=== PATIENT | female | born 1995 | race Caucasian/White ===

== ENCOUNTER 2024-12-10 09:52 | Emergency (ER) | payer BC, SELFPAY ==
--- NOTE | 2024-12-10 09:53 | ED.URI ---
HPI - URI/Sore Throat General Chief Complaint: Upper Respiratory Infection Stated Complaint: sinus infection Time Seen by Provider: 12/10/24 09:53 Source: patient Mode of arrival: ambulatory Limitations: no limitations History of Present Illness HPI Narrative: Janay is a 29-year-old female patient presenting to the clinic today with complaints of a possible sinus infection. She reports she has a lot of nasal congestion, sinus pressure, postnasal drip, and sore throat. States symptoms started on of last week. Had a [facility] appointment on Tuesday and was given prescription for doxycycline. She has started taken the doxycycline but states that she is not feeling any better. Denies any known fevers, chills, body aches. Denies any chest pain or shortness breath. No sick contacts. MD elicited complaint: sore throat and nasal congestion Related Data Allergies Allergy/AdvReac Type Severity Reaction Status Date / Time No Known Allergies Allergy Verified 12/10/24 09:56 Review of Systems Review of Systems: Pertinent positives per HPI. Patient denies any fever, chills, rash, visual changes, dizziness, shortness of breath, chest pain, palpitations, nausea, vomiting, diarrhea, constipation, abdominal pain, or any urinary issues. PMFSH Comments At the time of my signature, I reviewed and agree with the nursing past medical, surgical, social, and family history. There is no relevant family history pertinent to the patient complaint. Exam Narrative: General: Well-developed, well nourished, in no apparent distress Head: Normocephalic, atraumatic Eyes: Pupils equally round and reactive to light bilaterally, EOM intact, sclera and conjunctive clear, no discharge, lids normal Ears: TMs intact and congested ear canals clear, no drainage, grossly hearing normal. Nose: Nares patent, clear nasal discharge, no inflammation, no sinus tenderness. Mouth: Oral pharynx mildly red without lesions or masses, good dentition, MMM. Postnasal drip Neck: Supple, trachea midline, no enlargement of anterior or posterior cervical nodes, no thyroid masses or goiter palpable. Cardio: Regular rate and rhythm, s1 and s2 normal, no murmur appreciated. Resp: Clear to auscultation bilaterally, no rhonchi, rales, wheezing or rubs Course Course Emergency Course: Portions of this record may have been created with voice recognition software. Level of Care: Express Care Visit Vital Signs Vital signs: Vital Signs Temperature 36.2 C L 12/10/24 10:01 Pulse Rate 110 H 12/10/24 10:01 Respiratory Rate 16 12/10/24 10:01 Blood Pressure 134/80 12/10/24 10:01 Pulse Oximetry 100 12/10/24 10:01 Oxygen Delivery Room Air 12/10/24 10:01 Temperature 36.2 C L 12/10/24 10:01 Pulse Rate 110 H 12/10/24 10:01 Respiratory Rate 16 12/10/24 10:01 Blood Pressure 134/80 12/10/24 10:01 Pulse Oximetry 100 12/10/24 10:01 Oxygen Delivery Room Air 12/10/24 10:01 Vital signs reviewed MDM - URI/Sore Throat MDM Narrative Medical decision making narrative: At the time of visit patient is resting comfortably on the exam table. Patient appears to be nontoxic. Plan: I suspect patient has URI/postnasal drip. Prescription for prednisone was sent to the pharmacy. Supportive measures were discussed with the patient and they voiced understanding discharge instructions and agrees to treatment plan. Return precautions reviewed Differential Diagnosis Differential diagnosis: Likely upper respiratory infection, otitis media, sinusitis, viral infection, bronchitis, influenza, pharyngitis and other (COVID) Discharge Plan Discharge Clinical Impression: PND (post-nasal drip) Upper respiratory infection Qualifiers: URI type: unspecified URI Qualified Code(s): J06.9 - Acute upper respiratory infection, unspecified Patient Disposition: Home, Self-Care Condition: Stable Instructions: Antibiotic Form, Cold Symptoms (ED), Postnasal Drip (DC) Additional Instructions: Take prescription medications only as prescribed-prednisone Continue current medications as prescribed Increase fluids and stay well hydrated Tylenol/motrin for pain/fever Flonase and OTC antihistamines as directed Vicks vapor rub to open sinuses Sinus rinses for congestion Cepacol spray, cough drops, throat lozenges, warm tea with honey/lemon, gargle salt water to soothe throat BRAT diet for diarrhea Clear liquids x 24 hours then advance as tolerated for nausea/vomiting Go to the ED if you develop a worsening in your condition- high fever not controlled by Tylenol or Motrin, dehydration, weakness, lethargy, shortness of breath, or chest pain. Follow up with your PCP in 3-5 days if symptoms persist. Patient Language: Lao Prescriptions: New prednisone 50 mg tablet 50 mg PO DAILY 5 Days Qty: 5 0RF Follow-up/Referrals: Nidia,Ashley Madrigal MD [Primary Care Provider] - Time of Disposition: 10:12 Quality NIHSS Nursing Documentation ED NIHSS nursing documentation: reviewed/agree
[2024-12-10 10:01] VITALS: BP 134/80; PULSE 110; RESP 16; TEMP 36.2; O2SAT 100
--- OUTSIDE RECORDS SUMMARY | 2024-12-13 12:34 | XMS_ITS | Patient Health Record ---
Author Organization [facility] Address [address] [place] [address] Care Team Providers Care Aquatic Habitat Biologist Name Role Phone Ashley Jacob DO Primary Care Provider Miesha Dumas Unavailable [phone] Allergies Allergen (clinical drug ingredient) Drug/Non Drug Allergy documented on EMR Reaction Allergy Type Onset Date Status amoxicillin Amoxicillin other reaction Drug Allergy Active Reason For Referral No Information Medications Medication SIG (Take, Route, Frequency, Duration) Notes Start Date End Date Status Fluticasone Propionate 50 MCG/ACT 2 sprays in each nostril Nasally Twice a day for 30 days Active Soolantra 1 % 1 application Display Specialist ally Once a day Active Cetirizine HCl 10 MG 1 tablet Orally Onc e a day Active Levocetirizine Dihydrochloride 5 MG 1 tablet in the evening Orally Once a day for 30 days Active Aaxkoqaczgb-Ewmojurdb-Ojwfkv ty 1.25-0.025-1 % as directed Externally Active Social History Tobacco Use: Social History Observation Description Date Details (start date - stop date) Former Smoker NA - NA Tobacco Control (Standard) Question Answer Notes Tobacco use: Former smoker Problems Problem Type SNOMED Code ICD Code Onset Dates Problem Status W/U Status Risk Notes Problem Chronic allergic conjunctivitis (53489638) Other chronic allergic conjunctivitis (H10.45) Active confirmed Problem Allergic rhinitis caused by pollen (disorder) (46439094) Allergic rhinitis due to pollen (J30.1) Active confirmed Problem Allergic rhinitis (94601286) Other allergic rhinitis (J30.89) Active confirmed Problem Rosacea (790406536) Rosacea, unspecified (L71.9) Active confirmed Problem Allergic rhinitis caused by animal hair and dander (268673434605073) Allergic rhinitis due to animal (cat) (dog) hair and dander (J30.81) Active confirmed Vital Signs Oximetry 99 % 06/27/2024 Blood pressure diastolic 87 mm Hg 06/27/2024 Height 64 in 06/27/2024 Blood pressure systolic 126 mm Hg 06/27/2024 Weight 189.0 lbs 06/27/2024 BMI 32.44 kg/m2 06/27/2024 Encounters Encounter Location Date Provider Diagnosis [address] [address] 07/25/2024 Miesha Prasad Allergic rhinitis du e to pollen J30.1 ; Dermatitis due to ingested food L27.2 ; Rosacea, unspecified L71.9 ; Allergic rhinitis due to animal (cat) (dog) hair and dander J30.81 ; Other chronic allergic conjunctivitis H10.45 and Snoring R06.[address] [address] 06/27/2024 Miesha Prasad Allergic rhinitis du e to pollen J30.1 ; Dermatitis due to ingested food L27.2 ; Rosacea, unspecified L71.9 ; Allergic rhinitis due to animal (cat) (dog) hair and dander J30.81 ; Other chronic allergic conjunctivitis H10.45 and Snoring R06.83 Assessments Encounter Date Diagnosis (ICD Code) Assessment Notes Treatment Notes Treatment Clinical Notes Section Notes 06/27/2024 Allergic rhinitis due to pollen (ICD-10 - J30.1) Given the history and symptoms, skin testing was performed to common aeroallergens to determine atopic status. Janay Vega clearly suffers from atopic disease based upon our skin testing and clinical history. Accordingly, we have introduced a new, aggressive medication regimen, discussed nasal washes and allergy-specific avoidance measures. We also discussed adjunctive therapies including subcutaneous, specific allergen immunotherapy as relates to the treatment and prevention of atopic disease. She is currently considering the risks, benefits and alternatives to this care. Risks: bleeding, infection, allergic reaction, anaphylaxis; Benefits: reduced need for medications, improved symptoms, disease modification. Alternatives: watch/wait, change medication regimen, improve allergy avoidance measures. Follow-up in 1 month for interval evaluation and management 06/27/2024 Dermatitis due to ingested food (ICD-10 - L27.2) We discussed that skin testing identifies immediate allergic reactions to food including urticaria, angioedema and shortness of breath. Skin testing does not identify food intolerances or food that would flare rosacea. Recommend keeping a food diary. We discussed that spicy food, acidic food and alcohol are common items which can flare rosacea. 07/25/2024 Allergic rhinitis due to pollen (ICD-10 - J30.1) Given the history and symptoms, skin testing was performed to common aeroallergens to determine atopic status. Janay Veag clearly suffers from atopic disease based upon our skin testing and clinical history. Accordingly, we have introduced a new, aggressive medication regimen, discussed nasal washes and allergy-specific avoidance measures. We also discussed adjunctive therapies including subcutaneous, specific allergen immunotherapy as relates to the treatment and prevention of atopic disease. She is currently considering the risks, benefits and alternatives to this care. Risks: bleeding, infection, allergic reaction, anaphylaxis; Benefits: reduced need for medications, improved symptoms, disease modification. Alternatives: watch/wait, change medication regimen, improve allergy avoidance measures. Follow-up in 1 month for interval evaluation and management 07/25/2024 Dermatitis due to ingested food (ICD-10 - L27.2) We discussed that skin testing identifies immediate allergic reactions to food including urticaria, angioedema and shortness of breath. Skin testing does not identify food intolerances or food that would flare rosacea. Recommend keeping a food diary. We discussed that spicy food, acidic food and alcohol are common items which can flare rosacea. 07/25/2024 Rosacea, unspecified (ICD-10 - L71.9) 06/27/2024 Rosacea, unspecified (ICD-10 - L71.9) 06/27/2024 Allergic rhinitis due to animal (cat) (dog) hair and dander (ICD-10 - J30.81) Follow allergen avoidance, meds and consider SCIT as an adjunctive treatment to current regimen 07/25/2024 Allergic rhinitis due to animal (cat) (dog) hair and dander (ICD-10 - J30.81) Follow allergen avoidance, meds and consider SCIT as an adjunctive treatment to current regimen 06/27/2024 Other chronic allergic conjunctivitis (ICD-10 - H10.45) Given ocular signs and symptoms I encouraged allergy avoidance measures and meds as above. If symptoms persist, consider adding additional medications including intraocular antihistamine/mas t cell stabilizer, PRN 07/25/2024 Other chronic allergic conjunctivitis (ICD-10 - H10.45) Given ocular signs and symptoms I encouraged allergy avoidance measures and meds as above. If symptoms persist, consider adding additional medications including intraocular antihistamine/mas t cell stabilizer, PRN 06/27/2024 Snoring (ICD-10 - R06.83) Treat atopic disease and monitor for improvement. Also recommend ENT evaluation given history of breaking her nose. Also recommend sleep study. 07/25/2024 Snoring (ICD-10 - R06.83) Treat atopic disease and monitor for improvement. Also recommend ENT evaluation given history of breaking her nose. Also recommend sleep study. 07/25/2024 Other 06/27/2024 Other Plan Of Treatment No Information Insurance Providers Payer Name Payer Address Payer Phone Subscriber Number Group Number Insured Name Patient Relationship to Insured Coverage Start Date Coverage End Date [facility] [address] [place] [address] [id number] Janay Flynn Kate Self - patient is the insured 4 Medical (General) History Medical History History ICD Code Anxiety Surgical History Surgery Date(Month/Year) mole removal 1997 breast reduction 2019 right acl repair 2009
--- OUTSIDE RECORDS SUMMARY | 2024-12-13 12:34 | XMS_ITS ---
Author Organization [facility] Address [address] [place] [address] Care Team Providers Care Tandem Operator Name Role Phone Ashley Jacob DO Primary Care Provider Miesha Dumas Unavailable [phone] REASON FOR VISIT Chronic upper airway symptoms concerning for uncontrolled atopic disease, Food allergy Medications Medication SIG (Take, Route, Frequency, Duration) Notes Start Date End Date Status Fluticasone Propionate 50 MCG/ACT 2 sprays in each nostril Nasally Twice a day for 30 days Active Soolantra 1 % 1 application Mortar Mixer Operator ally Once a day Active Cetirizine HCl 10 MG 1 tablet Orally Onc e a day Active Levocetirizine Dihydrochloride 5 MG 1 tablet in the evening Orally Once a day for 30 days Active Emboiyfyqzk-Kosaoivdz-Ffsxkl ty 1.25-0.025-1 % as directed Externally Active Encounters Encounter Location Date Provider Diagnosis [facility] [address] [facility] [address] [place] [id number] 07/25/2024 Miesha Prasad Allergic rhinitis du e to pollen J30.1 ; Dermatitis due to ingested food L27.2 ; Rosacea, unspecified L71.9 ; Allergic rhinitis due to animal (cat) (dog) hair and dander J30.81 ; Other chronic allergic conjunctivitis H10.45 and Snoring R06.83 Assessments Encounter Date Diagnosis (ICD Code) Assessment Notes Treatment Notes Treatment Clinical Notes Section Notes 07/25/2024 Allergic rhinitis due to pollen (ICD-10 [...] rosacea. 07/25/2024 Rosacea, unspecified (ICD-10 - L71.9) 07/25/2024 Allergic rhinitis due to animal (cat) (dog) hair and dander (ICD-10 - J30.81) Follow allergen avoidance, meds and consider SCIT as an adjunctive treatment to current regimen 07/25/2024 Other chronic allergic conjunctivitis (ICD-10 - H10.45) Given ocular signs and symptoms I encouraged allergy avoidance measures and meds as above. If symptoms persist, consider adding additional medications including intraocular antihistamine/mas t cell stabilizer, PRN 07/25/2024 Snoring (ICD-10 - R06.83) Treat atopic disease and monitor for improvement. Also recommend ENT evaluation given history of breaking her nose. Also recommend sleep study. 07/25/2024 Other Plan Of Treatment Medication Medication Name Sig Start Date Stop Date Notes Fluticasone Propionate 50 MCG/ACT 2 spra ys in each nostril Nasally Twice a day for 30 days Levocetirizine Dihydrochlori de 5 MG 1 tablet in the evening Orally Once a day for 30 days Treatment Notes Assessment Notes Allergic rhinitis due to pollen Given th e history and symptoms, skin testing was performed [...] 1 month for interval evaluation and management Dermatitis due to ingested food We discu ssed that skin testing identifies immediate allergic reactions to food including urticaria, angioedema and shortness of breath. Skin testing does not identify food intolerances or food that would flare rosacea. Recommend keeping a food diary. We discussed that spicy food, acidic food and alcohol are common items which can flare rosacea. Allergic rhinitis due to ani mal (cat) (dog) hair and dander Follow allergen avoidance, meds and consider SCIT as an adjunctive treatment to current regimen Other chronic allergic conjunctivitis Gi bacilio ocular signs and symptoms I encouraged allergy avoidance measures and meds as above. If symptoms persist, consider adding additional medications including intraocular antihistamine/mast cell stabilizer, PRN Snoring Treat atopic disease and monitor for improvement. Also recommend ENT evaluation given history of breaking her nose. Also recommend sleep study. Next Appt Details Follow Up: 4 Weeks, Reason: Evaluation and Management Progress Notes * Janay JIMENEZeDOB: [birth year] (29 yo F)Acc No.[id number]:07/25/2024 Progress Notes Patient:?Janay JIMENEZ Provider:?Miesha Prasad MD :1995???Age:28 Y???Sex:Female D ate:07/25/2024 [id number] Pcp:Ashley Jacob, DO Subjective: * Chief Complaints: * ???1. Chronic upper airway s ymptoms concerning for uncontrolled atopic disease. 2. Food allergy. * HPI: ???*Introduction:?I had the pleasure of seeing?Janay Jimenez, a 28 year old with history of rosacea, snoring, and rhinitis presenting for evaluation of allergic rhinitis and food allergy. Her is present for today's visit. ?She reports frequent congestion and rhinorrhea Spring and Fall season. She snores at night. No decrease in sense of smell or recurrent sinusitis. She was diagnosed with deviated septum after breaking her nose in childhood. Nasal sprays cause dryness. She takes Zyrtec with some improvement in rhinitis. ?She has a history of rosacea. She is taking Clindamycin gel and following with Dr. Guardado. Spicy and red wine flares her rosacea. Heat, cold, exercise also flare the rosacea. ?Tonsillectomy was performed around age 18. ?She has a cat and a dog at home. Recent water damage in the basement. She is living in a Duplex and bedroom in the basement. No musty smells. ?She reports bloating and sometimes diarrhea after eating meals.? She is concerned about a food allergy. ?She has never undergone allergy skin testing or received allergy immunotherapy.??She denies a history of physician-diagnosed allergic rhinitis, recurrent sinusitis or otitis media, recurrent pneumonia, asthma/RAD, eczema, food allergies, urticaria/angioedema, medication allergies, contact dermatitis, latex allergy, eosinophilic esophagitis or stinging insect hypersensitivity.?*Allergic Rhinoconjunctivitis:?Allergic rhinitis?Do you have or suspect you have allergic rhinitis (itchy eyes, sneezing, congestion or runny nose triggered by allergies)??Yes ?Which areas and what symptoms are involved? Please fill out each section below as needed.?eyes,ears,cough,nose,sore throat,headache,sinuses ?Which of the following trigger your allergic rhinitis symptoms??tree pollen,grass pollen,weed pollen,sinus infections,spring (season),fall (season) ?Do you have any of the following other symptoms associated with your allergic rhinitis??loud snoring,restless sleep ?Eyes?Specific affected area:?both (bilateral) ?Occurence??intermittent ?How frequent??infrequent ?When does this mostly occur??anytime ?Symptoms:?itching,watering ?Ears?Specific affected area:?both (bilateral) ?How often??intermittent ?Symptoms:?plugged ?Nose?Specific area affected:?both (bilateral) ?Occurence??intermittent ?How frequent??infrequent ?When does this mostly occur??anytime ?Symptoms??congestion,sneezing jags,postnasal drainage,sinus infection,awaken very congested in the a.m. ?Effective treatments??oral antihistamines (Zyrtec or Sandra or Claritin) ?Sinuses?Do you have sinus pain??Yes ?Have you lost sense of taste??No ?Where??center of forehead above eyes (frontal),over left cheek (maxillary),over right cheek (maxillary,over nasal bridge between the eyes (ethmoid) ?Have you been treated with antibiotics for sinusitis??Yes ?Which antibiotics??azithromycin ?How often in the past year??3 - 5 times ?What is the longest duration of antibiotics prescribed and completed??6-10 days ?Have any of the following treatments improved your sinus symptoms??oral decongestants (Sudafed),oral antihistamines (Zyrtec or Sandra) ?Have you ever had a CT scan or xray??No ?Have you ever undergone sinus surgery??No ?Sore Throat?Occurence??intermittent ?How frequent??infrequent ?When does this usually occur??anytime ?Effective treatments??throat lozenges ?Cough?Frequency:?infrequent ?Is cough more bothersome during night??No ?Is phlegm produced??Yes ?Sputum color??clear,yellow,green ?Is significant phlegm produced during the night??No ?Effective treatments??OTC cough medicine (Delsym or Robitussin) ?Headache?Specific area(s) affected??center forehead (frontal),over nose between eyes (ethmoid),base of neck,left side of head (orthodox),right side of head (orthodox) ?Occurence??intermittent ?How frequent??infrequent ?What time of day does this mostly occur??anytime ?Accompanying symptoms??phonophobia (bothered by sound) ???*Asthma:?Cough?Do you have a recurrent cough??No ?Wheezing?Do you have recurrent wheezing or a history of wheezing sometime in your life??No ?Did you have symptoms of asthma as a child??No ?Did you have frequent respiratory infections as a child??No ?Were you ever hospitalized in the first 12 months of life for a respiratory infection in childhood??No ?Do you still have wheezing??No ?Physical Performance?How many blocks can you walk? (Enter 99 for unlimited)?30 ?How many flights of stairs can you climb without stopping? (Enter 99 for unlimited)?16 ?Do you have any of the following additional problems??loud snoring,restless sleep ?Effective treatments for cough and or wheezing?OTC cough medicine?Delsym ???*Infections:?Vaccination History?For children, are childhood vaccines up to date:?Yes ?Have you ever had a flu shot??Yes ?Date of last flu shot??10/10/2023 ?Have you ever had a pneumococcal vaccine (BSU-Whxqxwp-Kdhflsowr)??No ?Have you ever had a tetanus vaccine (HEud-Nsuy-Gb)??Yes ?Date of last tetanus vaccine??11/21/2019 ?Did it contain pertussis as well??No ?Ear Infections?Do you have frequent ear infections??No ?Sinusitis (Sinus infections)?Do you have frequent episodes of sinusitis??Yes ?How many episodes in your entire life??9 ?How many episodes over the past 12 months??3 ?Have you been treated with antibiotics for sinusitis??Yes ?How many courses of antibiotics for sinusitis in the past year??3-5 times ?What is the longest course of antibiotics you have taken for sinusitis??7 days ?Have you been seen by an solar thermal installer or work ticket distributor to evaluate your immune system function for recurrent sinus infections??No ?Sinus Symptoms and Surgery?Do you have chronic or recurrent sinus symptoms??Yes ?Do you have a history of nasal polyps??No ?Do you have sinus pain??No ?Do you have a loss of sense of taste??Yes ?Have you used any of the following treatments for your sinuses??nasal spray decongestants,nasal salt water irrigations,oral antihistamines,oral decongestants ?Which provided benefit??nasal spray decongestants,nasal salt water irrigations,oral antihistamines,oral decongestants ?Have you ever had a sinus CT or X-Ray??No ?Have your ever undergone sinus surgery??No ?Bronchitis History?Do you get frequent bronchitis??No ?Pneumonia History?Have you ever had pneumonia or recurrent pneumonia??No ?Skin and Other Infections?Do you get frequent skin infections (cellulitis)??No ?Do you get any other frequent infections??No ???*Other Rash and Contact Dermatitis:?Other rashes and contact dermatitis?Have you ever had any other form of rash or contact dermatitis??No ???*Atopic dermatitis:?Atopic dermatitis - Eczema?Do you have chronic or recurrent atopic dermatitis or eczema??No ???*Urticaria:?Urticaria (hives)?Do you have recurrent hives??Yes ?Approximately, when did your hives start??11/21/2005 ?How many weeks of symptoms have you had in your whole life? (adding up total days of symptoms throughout your whole life)?more than 6 weeks ?How many hives outbreaks have you had in your whole life??9 ?How many outbreaks have you had in the past 12 months??9 ?How frequently do you have hives outbreaks??few times a week ?How long do outbreaks last (whole rash)??hours ?How long does one individual hive last? If you were to [place] one hive with a pen, how long would that area be affected??few hours ?What time(s) of day do your hives occur??any time (no predilection) ?Color of your hives??red ?Body parts involved??face,neck ?Typical number of separate hives??0 ?Typical size of hives??1 cm ?Description of hives??flat,poorly-defined border,blanches (loses color) with pressure (touch) ?Symptoms of hives??swelling,other ?Perceived triggers or provocateurs of hives??alcohol,stress,temperature change (change to cold),temperature change (change to warm),fragrances,detergents ?Do any of the following physical stimuli initate or worsen your hives??environment,sun exposure ?Do you regularly consume products with aspartame (Equal or NutraSweet)??Yes ?If yes, do you ever notice worsening of your rash with these food items??Yes ?Do you get angioedema (deep swelling) with your hives? (angioedema is painful, not itchy and commonly lasts for days) - If yes fill out the Angioedema page in this questionnaire?no - never ?What improves your hives??bathing (cold),showering (cold),temperature change (cooler) ?As the hives resolve, are there skin changes??no (normal skin returns) ?Do you use any of the following personal care products that contain fragrance, dyes or preservatives??shampoo,conditioner,soap,deodorant,perfume, cologne or aftershave,hair coloring dyes or rinses ?Do you ever take any of the following medications??Aspirin (Bufferin or Excedrin),Nonsteroids anti-inflammatories (NSAIDs like ibuprofen or Advil or Motrin or naproxen or Aleve),Oral contraceptive ( control pills) ???*Medication allergy:?Medication Allergy?Do you feel you are allergic to any medications??No ?Have you been evaluated by an solar thermal installer previously for possible drug allergy??No ???*Stinging Insects:?Insect Reaction(s)?Have you ever experienced a stinging insect reaction??No ???*Prior Evaluations and Treatments:?Prior evaluations and treatments?Have you been evaluated by another physician for allergic rhinitis, cough, wheezing, asthma, urticaria, angioedema, atopic dermatitis or eczema??No ?Have you undergone testing for any aforementioned conditions or symptoms??No ?Have you ever been on allergy immunotherapy??No ?Have you ever passed out during a blood draw, shot or vaccination??No ?Last dose of antihistamine:?cetirizine (Zyrtec)?06/01/2024 ?diphenhydramine (Benadryl)?06/11/2024 ?Has your antihistamine been effective in controlling any of your symptoms??Yes ?Symptoms related to what condition(s)??allergic rhinitis ?Do you take any other psychiatric medication??No ???*Food allergy:?Food Allergy?Do you currently have or have you ever had any proven or suspected food allergies??No ???*Eosinophilic GI:?Eosinophilic Gastrointestinal Disease?Do you have difficulty swallowing foods or have you previously needed to have your esophagus dilated for food impaction or have you been diagnosed with eosinophilic gastrointestinal disease??No ???*Angioedema:?Angioedema (swelling)?Do you have recurrent swelling (angioedema)??No * ROS:?ALLERGY:?runny nose?Yes.?scratchy throat?Yes.?itchy eyes?Yes.?ear fullness?Yes.?sinus congestion?Yes.?Positive?per the HPI and history, otherwise unremarkable.?SPECIAL SENSES:?Positve for?none.?cataracts?No.?glaucoma?No.?loss of hearing?No.?itching in ears?No.?ringing in ears?No.?loss of balance?No.?loss of smell?No.?dry eyes?No.?excessive tearing No.?itching eyes?No.?loss of taste?No.?conjunctivitis?No.?ear infections?No.?CONSTITUTIONAL:?weight gain?No.?loss of appetite?No.?fever?No.?weakness?No.?weight loss?No.?fatigue?No.?night sweats?No.?Positive for?none.?ENT:?cold?No.?cough?No.?epistaxis?No.?hearing loss?No.?change in voice?No.?sore throat?No.?ringing in ears?No.?sinus pain?No.?Positive?per the HPI and history, otherwise unremarkable.?RESPIRATORY:?shortness of breath?No.?chest pain?No.?chest congestion?No.?cough?No.?Positive?per the HPI and history, otherwise unremakable.?OPHTHALMOLOGY:?diminished vision?No.?eye irritation?No.?drainage from eyes?No.?blurring of vision?No.?seasonal eye sx?No.?Positive for?per the HPI and history, otherwise unremarkable.?itching?No.?sensitivity to light?No.?discharge?No.?watering?No.?swelling of the eyelids?No.?redness?No.?ENDOCRINOLOGY:?fatigue?No.?polydipsia?No.?polyuria?No.?weight loss?No.?sleep disturbance?No.?cold intolerance?No.?heat intolerance?No.?diabetes?No.?Positive for?none.?CARDIOLOGY:?chest pain?No.?palpitations?No.?leg edema?No.?dizziness?No.?shortness of breath?No.?Positive for?none.?GASTROENTEROLOGY:?dysphagia?No.?abdominal pain?No.?nausea?No.?vomiting?No.?constipation?No.?diarrhea?No.?blood in stool?No.?indigestion?No.?hemorrhoids?No.?Positive for?none.?UROLOGY:?difficulty urinating?No.?blood in urine?No.?frequent urination?No.?urinary incontinence?No.?recurrent UTI?No.?Positive for?none.?DERMATOLOGY:?rash?No.?mole?No.?lumps?No.?dry or sensitive skin?Yes.?hives (urticaria)?Yes.?acne?Yes.?skin cancer?No.?Positive for?per the HPI and history, otherwise unremakable.?NEUROLOGY:?headache?Yes.?tingling numbness?No.?seizures?No.?insomnia?No.?memory loss?No.?dizziness?No.?gait abnormality?No.?Positive for?none.?HEMATOLOGY/LYMPH:?Positive for?none.?MUSCULOSKELETAL:?joint swelling?No.?joint pain?No.?leg cramps?No.?joint stiffness?No.?sciatica?No.?osteoporosis?No.?fracture?No.?carpal tunnel?No.?gout?No.?Positive for?none.?PSYCHOLOGY:?high stress level?No.?depression?No.?sleep disturbances?No.?suicidal ideation?No.?eating disorder?No.?mental or physical abuse?No.?anxiety?Yes.?Positive for?none.?FEMALE REPRODUCTIVE:?heavy periods?No.?hot flashes?No.?abnormal vaginal discharge?No.?sexually active?Yes.?infertility?No.?frequent yeat infections?No.?pelvic pain?No.?breast pain?No.?nipple discharge No.?Are you ??No.?Are you planning on a future pregancy??Yes.?All other review of systems per the HPI and history, otherwise unremarkable. * Medical History:? * Medications:?Taking Cetirizi ne HCl 10 MG Tablet 1 tablet Orally Once a day , Taking Soolantra 1 % Cream 1 application Externally Once a day , Taking Oynmscpcuoi-Tnrjdcmss-Ezypokeg 1.25-0.025-1 % Cream as directed Externally , Taking Levocetirizine Dihydrochloride 5 MG Tablet 1 tablet in the evening Orally Once a day , Taking Fluticasone Propionate 50 MCG/ACT Suspension 2 sprays in each nostril Nasally Twice a day Objective: * Vitals:? * Examination: ???General examination: ?General appearance:?pleasant, well-developed, well-nourished.?HEENT:?conjunctiva are clear bilaterally, no tenderness to palpation of the sinuses, TM's without evidence of acute infection, turbinates with pink mucosa, deviated septum,?clear rhinorrhea is present, no polyps noted, posterior oropharynx is clear, no exudates, no tongue swelling, and uvula is midline.?Oral cavity:?normal, no lesions.?Neck, thyroid :?supple, non-tender, no anterior cervical lymphadenopathy.?Breasts :?not performed.?Heart:?RRR, S1-S2, no murmurs, no rubs, no gallops.?Lungs:?clear to auscultation and percussion in all lung [place], no wheezes or crackles.?Neurologic exam:?unremarkable.?Skin:?normal, no rash, dermatographism, urticaria, angioedema.?Peripheral pulses:?normal (2+) bilaterally.?Back:?normal.?Extremities:?normal ROM, no clubbing, no cyanosis, no edema.?Genitalia:?not performed.? Assessment: * Assessment: 1.?Allergic rhinitis due to pollen - J30.1 (Primary)???2.?Dermatitis due to ingested food - L27.2???3.?Rosacea, unspecified - L71.9???4.?Allergic rhinitis due to animal (cat) (dog) hair and dander - J30.81???5.?Other chronic allergic conjunctivitis - H10.45???6.?Snoring - R06.83??? Plan: * Treatment: 2.?Dermatitis due to ingeste d food? Notes: We discussed that skin testing identifies immediate allergic reactions to food including urticaria, angioedema and shortness of breath. Skin testing does not identify food intolerances or food that would flare rosacea. Recommend keeping a food diary. We discussed that spicy food, acidic food and alcohol are common items which can flare rosacea. ?? 3.?Allergic rhinitis due to animal (cat) (dog) hair and dander? Notes: Follow allergen avoidance, meds and consider SCIT as an adjunctive treatment to current regimen?? 4.?Other chronic allergic co njunctivitis? Notes: Given ocular signs and symptoms I encouraged allergy avoidance measures and meds as above. If symptoms persist, consider adding additional medications including intraocular antihistamine/mast cell stabilizer, PRN ?? 5.?Snoring? Notes: Treat atopic disease and monitor for improvement. Also recommend ENT evaluation given history of breaking her nose. Also recommend sleep study. ?? * Procedure Codes:?24097 PRICK TESTS, Units: 24.00 , 40149 PT-FOCUSED HLTH RISK ASSMT, G8427 DOC MEDS VERIFIED W/PT OR RE * Preventive Medicine:? ??Counseling:?Medication instruction:?Watch for side effects of prescribed medications, Nasal steroid/antihistamine instruction: avoid septum.?Education:?GENERAL EDUCATION: Our staff spent an additional 30 minutes in direct contact with the patient educating them on their current diagnoses and proper treatment and prevention of symptoms and the proper use of medications.?Education 2:?ARC EDUCATION: Our staff discussed the appropriate allergen avoidance measures and medication utilization including upper airway hygiene with daily nasal washes given the patient's clinical status and diagnoses. SCIT EDUCATION: Discussed allergy immunotherapy including the relative risks, benefits and alternatives to this treatment as an adjunctive measure to current therapy, Allergy Immunotherapy: Risks: bleeding, infection, allergic reaction, anaphylaxis = severe allergic reaction that can cause ; Benefits: reduced need for medications, improved symptoms, disease modification. Alternatives: watch/wait, change medication regimen, improve allergy avoidance measures, Our staff discussed the warning signs of anaphylaxis and the indications to use self-injectable epinephrine and seek urgent or emergent care.?Patient education material?sent to portal??Yes * Follow Up:?4 Weeks (Reason: Evaluation and Management) * Billing Information: * Visit Code:? 99892 Office Visit, New Pt., Level 4. Modifiers: 25 * Procedure Codes:? 35449 PRICK TESTS. Units: 24.00. 66382 PT-FOCUSED HLTH RISK ASSMT. G8427 DOC MEDS VERIFIED W/PT OR RE. * Electronic signature of Monica Prasad MD on 12/13/2024 at 12:34 PM WINDOWS CONSULTANT Sign off status: Pending * Provider:?Miesha Prasad MD Date:?02/2024 Generated for Clairi charles/Vito/eTransmitting on:?12/13/2024 12:34 PM WINDOWS CONSULTANT History and Physical Notes * HPI (History of Present Illness) Category Sub-Category Detail Notes Category Not es *Introduction I had the pleasure of seeing Janay Jimenez, a 28 year old with history of rosacea, snoring, and rhinitis presenting for evaluation of allergic rhinitis and food allergy. Her is present for today's visit. She reports frequent congestion and rhinorrhea Spring and Fall season. She snores at night. No decrease in sense of smell or recurrent sinusitis. She was diagnosed with deviated septum after breaking her nose in childhood. Nasal sprays cause dryness. She takes Zyrtec with some improvement in rhinitis. She has a history of rosacea. She is taking Clindamycin gel and following with Dr. Guardado. Spicy and red wine flares her rosacea. Heat, cold, exercise also flare the rosacea. Tonsillectomy was performed around age 18. She has a cat and a dog at home. Recent water damage in the basement. She is living in a Duplex and bedroom in the basement. No musty smells. She reports bloating and sometimes diarrhea after eating meals. She is concerned about a food allergy. She has never undergone allergy skin testing or received allergy immunotherapy. She denies a history of physician-diagnosed allergic rhinitis, recurrent sinusitis or otitis media, recurrent pneumonia, asthma/RAD, eczema, food allergies, urticaria/angioedema, medication allergies, contact dermatitis, latex allergy, eosinophilic esophagitis or stinging insect hypersensitivity *Allergic Rhinoconjunctivitis Eyes Specific affected area:: both (bilateral) Occurence?: intermittent ?How frequent?: infrequent When does this mostly occur?: anytime Symptoms:: itching,watering Ears Specific affected area:: both (b ilateral) How often?: intermittent Symptoms:: plugged Cough Frequency:: infrequent Is cough more bothersome during night?: No Is phlegm produced?: Yes ?Sputum color?: clear,yellow,green ?Is significant phlegm produced during t he night?: No Effective treatments?: OTC cough medicin e (Delsym or Robitussin) Nose Specific area affected:: both (b ilateral) Occurence?: intermittent ?How frequent?: infrequent When does this mostly occur?: anytime Symptoms?: congestion,sneezi ng jags,postnasal drainage,sinus infection,awaken very congested in the a.m. Effective treatments?: oral antihistamin es (Zyrtec or Sandra or Claritin) Sore Throat Occurence?: intermittent ?How frequent?: infrequent When does this usually occur?: anytime Effective treatments?: throat lozenges Headache Specific area(s) aff ected?: center forehead (frontal),over nose between eyes (ethmoid),base of neck,left side of head (orthodox),right side of head (orthodox) Occurence?: intermittent ?How frequent?: infrequent What time of day does this mostly occur? : anytime Accompanying symptoms?: phonophobia (bot hered by sound) Sinuses Do you have sinus pain?: Yes Have you lost sense of taste?: No ?Where?: center of forehead above eyes (frontal),over left cheek (maxillary),over right cheek (maxillary,over nasal bridge between the eyes (ethmoid) Have you been treated with antibiotics f or sinusitis?: Yes ?Which antibiotics?: azithromycin ?How often in the past year?: 3 - 5 time s ?What is the longest duratio n of antibiotics prescribed and completed?: 6-10 days Have any of the following tr eatments improved your sinus symptoms?: oral decongestants (Sudafed),oral antihistamines (Zyrtec or Sandra) Have you ever had a CT scan or xray?: No Have you ever undergone sinus surgery?: No Allergic rhinitis Do you have or suspe ct you have allergic rhinitis (itchy eyes, sneezing, congestion or runny nose triggered by allergies)?: Yes ?Which areas and what sympto ms are involved? Please fill out each section below as needed.: eyes,ears,cough,nose,sore throat,headache,sinuses ?Which of the following trig katrina your allergic rhinitis symptoms?: tree pollen,grass pollen,weed pollen,sinus infections,spring (season),fall (season) ?Do you have any of the foll owing other symptoms associated with your allergic rhinitis?: loud snoring,restless sleep *Asthma Cough Do you have a recurrent cough?: No Effective treatments for cou gh and or wheezing OTC cough medicine: Delsym Wheezing Do you have recurren t wheezing or a history of wheezing sometime in your life?: No Did you have symptoms of asthma as a chi ld?: No Did you have frequent respiratory infect ions as a child?: No Were you ever hospitalized i n the first 12 months of life for a respiratory infection in childhood?: No Do you still have wheezing?: No Physical Performance How many blocks can you wal k? (Enter 99 for unlimited): 30 How many flights of stairs c an you climb without stopping? (Enter 99 for unlimited): 16 Do you have any of the follo wing additional problems?: loud snoring,restless sleep *Infections Vaccination History For children , are childhood vaccines up to date:: Yes Have you ever had a flu shot?: Yes ?Date of last flu shot?: 10/10/2023 Have you ever had a pneumococcal vaccine (LEV-[id number]-[id number])?: No Have you ever had a tetanus vaccine (DTa p-Tdap-Td)?: Yes ?Date of last tetanus vaccine?: 11/21/19 ?Did it contain pertussis as well?: No Ear Infections Do you have frequent ear infecti ons?: No Sinusitis (Sinus infections) Do you have frequen t episodes of sinusitis?: Yes ?How many episodes in your entire life?: 9 ?How many episodes over the past 12 kennedy hs?: 3 ?Have you been treated with antibiotics for sinusitis?: Yes ??How many courses of antibiotics for si nusitis in the past year?: 3-5 times ??What is the longest course of antibiotics you have taken for sinusitis?: 7 days ?Have you been seen by an al lergist or work ticket distributor to evaluate your immune system function for recurrent sinus infections?: No Sinus Symptoms and Surgery Do you have c hronic or recurrent sinus symptoms?: Yes ?Do you have a history of nasal polyps?: No Do you have sinus pain?: No Do you have a loss of sense of taste?: Y es Have you used any of the fol lowing treatments for your sinuses?: nasal spray decongestants,nasal salt water irrigations,oral antihistamines,oral decongestants Which provided benefit?: marilyn al spray decongestants,nasal salt water irrigations,oral antihistamines,oral decongestants Have you ever had a sinus CT or X-Ray?: No Have your ever undergone sinus surgery?: No Bronchitis History Do you get frequent bronchiti s?: No Pneumonia History Have you ever had pneumonia or recurrent pneumonia?: No Skin and Other Infections Do you get frequent sk in infections (cellulitis)?: No Do you get any other frequent infections ?: No *Other Rash and Contact Dermatitis Other rashes and contact dermatitis Have you ever had any other form of rash or contact dermatitis?: No *Atopic dermatitis Atopic dermatitis - Eczema Do you have chronic or recurrent atopic dermatitis or eczema?: No *Urticaria Urticaria (hives) Do you have re current hives?: Yes ?Approximately, when did your hives star t?: 11/21/2005 ?How many weeks of symptoms have you had in your whole life? (adding up total days of symptoms throughout your whole life): more than 6 weeks ?How many hives outbreaks have you had i n your whole life?: 9 ?How many outbreaks have you had in the past 12 months?: 9 ?How frequently do you have hives outbre aks?: few times a week ?How long do outbreaks last (whole rash) ?: hours ?How long does one individua l hive last? If you were to [place] one hive with a pen, how long would that area be affected?: few hours ?What time(s) of day do your hives occur ?: any time (no predilection) ?Color of your hives?: red ?Body parts involved?: face,neck ?Typical number of separate hives?: 0 ?Typical size of hives?: 1 cm ?Description of hives?: flat ,poorly-defined border,blanches (loses color) with pressure (touch) ?Symptoms of hives?: swelling,other ?Perceived triggers or provo cateurs of hives?: alcohol,stress,temperature change (change to cold),temperature change (change to warm),fragrances,detergents ?Do any of the following phy sical stimuli initate or worsen your hives?: environment,sun exposure ?Do you regularly consume products with aspartame (Equal or NutraSweet)?: Yes ??If yes, do you ever notice worsening o f your rash with these food items?: Yes ?Do you get angioedema (deep swelling) with your hives? (angioedema is painful, not itchy and commonly lasts for days) - If yes fill out the Angioedema page in this questionnaire: no - never ?What improves your hives?: bathing (cold),showering (cold),temperature change (cooler) ?As the hives resolve, are there skin ch anges?: no (normal skin returns) ?Do you use any of the follo wing personal care products that contain fragrance, dyes or preservatives?: shampoo,conditioner,soap,deodorant,perfume, cologne or aftershave,hair coloring dyes or rinses ?Do you ever take any of the following medications?: Aspirin (Bufferin or Excedrin),Nonsteroids anti-inflammatories (NSAIDs like ibuprofen or Advil or Motrin or naproxen or Aleve),Oral contraceptive ( control pills) *Medication allergy Medication Allergy Do you fe el you are allergic to any medications? : No Have you been evaluated by a n solar thermal installer previously for possible drug allergy?: No *Stinging Insects Insect Reaction(s) Have you ev er experienced a stinging insect reaction? : No *Prior Evaluations and Treatments Prior evaluations and treatments Have you been evaluated by another physician for allergic rhinitis, cough, wheezing, asthma, urticaria, angioedema, atopic dermatitis or eczema?: No Have you undergone testing for any afore mentioned conditions or symptoms?: No Have you ever been on allergy immunother apy?: No Have you ever passed out during a blood draw, shot or vaccination?: No Last dose of antihistamine: cetirizine (Zyrtec): 06/01/2024 diphenhydramine (Benadryl): 06/11/2024 Has your antihistamine been effective in controlling any of your symptoms?: Yes ?Symptoms related to what condition(s)?: allergic rhinitis Do you take any other psychiatric medica tion?: No *Food allergy Food Allergy Do you currently have or have you ever had any proven or suspected food allergies?: No *Eosinophilic GI Eosinophilic Gastroi ntestinal Disease Do you have difficulty swallowing foods or have you previously needed to have your esophagus dilated for food impaction or have you been diagnosed with eosinophilic gastrointestinal disease?: No *Angioedema Angioedema (swelling) Do you hav e recurrent swelling (angioedema)?: No Examination Category Sub-Category Detail Notes Category Not es General examination HEENT: conjunctiva are clear bilaterally, no tenderness to palpation of the sinuses, TM's without evidence of acute infection, turbinates with pink mucosa, deviated septum, clear rhinorrhea is present, no polyps noted, posterior oropharynx is clear, no exudates, no tongue swelling, and uvula is midline Neck, thyroid : supple, non-tender, no anterior cervical lymphadenopathy Heart: RRR, S1-S2, no murmu rs, no rubs, no gallops Lungs: clear to auscultatio n and percussion in all lung [place], no wheezes or crackles Abdomen: Extremities: normal ROM, no clubb ing, no cyanosis, no edema General appearance: pleasant, well-devel oped, well-nourished Skin: normal, no rash, tamir matographism, urticaria, angioedema Neurologic exam: unremarkable Oral cavity: normal, no lesions Breasts : not performed Peripheral pulses: normal (2+) bilatera lly Back: normal Genitalia: not performed
== END 2024-12-10 10:15 | disposition home or self-care (01) ==
PROVIDERS: Emergency Provider Nurse Practitioner Family; PCP Family Medicine
DX: R09.82 Postnasal drip (principal); J06.9 Acute upper respiratory infection, unspecified; Z86.16 Personal history of COVID-19
CPT/HCPCS: 99203; G0463